=== PATIENT | female | born 1985 | race Caucasian/White ===

== ENCOUNTER → 2019-02-26 | Outpatient (CLI) | payer BC ==
[~2019-02-26] MED LIST: BCP; CEFU500T PO; EPIN0.3P3 IJ; ONDAN4ODT PO; TRM50T PO
--- NOTE | 2019-02-26 11:48 | Diagnostic Imaging Report ---
INDICATION: Anatomy scan. TECHNIQUE: Multiple real-time grayscale images were obtained over the gravid uterus. COMPARISON: None. FINDINGS: There is a single live fetus in a cephalic presentation. heart rate was recorded at 143 beats per minute. Placenta is posterior and to the right. Amniotic fluid volume is normal. Cervical length is 5.0 cm. kidneys, bladder and stomach are unremarkable. There is a three-vessel cord with normal insertion. Spine is unremarkable. There is limited evaluation of brain and four-chamber heart view due to position. Biometrical measurements are as follows: Biparietal 5.24 cm, age 22 weeks 0 days. Head circumference 19.38 cm, age 21 weeks 5 days. Abdominal circumference 16.15 cm, age 21 weeks 2 days. Femur length 3.49 cm, age 21 weeks 1 days. Sonographic estimate age: 21 weeks 4 days. Sonographic estimated date of delivery: 07/05/2019. Estimated Weight: 407 gm (+/- 59 gm). LMP percentile: 33%. heart rate: 143 beats per minute. number: 1 of 1. IMPRESSION: Single live IUP 21 weeks 4 days gestational age. Estimated date of confinement sonographically is 07/05/2019. survey is unremarkable although head and four chamber heart views were limited due to position and followup could be performed. Dictated by: Dictated on workstation # [id number]
== END ==
LOC: RAD 09:50
PROVIDERS: ATTEND Obstetrics & Gynecology
DX: Z36.89 Encounter for other specified antenatal screening (principal); Z3A.21 21 weeks gestation of pregnancy
CPT/HCPCS: 76805

== ENCOUNTER 2019-07-09 06:30 | Inpatient (IN) | payer BC ==
[2019-07-09] VITALS (51 sets, daily range): BP systolic 86–153; BP diastolic 51–84
[~2019-07-09] VITALS: Ht 154.9 cm; Wt 112.0 kg
[2019-07-09] MEDS ORDERED: D5 LR IV SOLUTION 1,000 ML IV ONE (07:43)
[2019-07-09] MEDS ORDERED: OXYTOCIN/NORMAL SALINE 500 ML IV SCH ×2 (08:04→16:16)
[2019-07-09] MEDS ORDERED: D5 LR IV SOLUTION 1,000 ML IV SCH ×2 (08:04)
[2019-07-09] MEDS ORDERED: MINERAL OIL CONCENTRATE 99.9% 15 ML UDC TOP PRN (08:15)
[2019-07-09 08:16] LABS: BASOPHILS % (AUTO) 0 % (0-10); EOSINOPHILS # (AUTO) 0.2 10^3/uL (0.0-0.3); EOSINOPHILS % (AUTO) 1 % (0-10); HEMATOCRIT 39 % (35-52); HEMOGLOBIN 13.6 G/DL (11.5-16.0); LYMPHOCYTES # (AUTO) 2.3 X 10^3 (1.0-4.0); LYMPHOCYTES % (AUTO) 17 % (12-44); MEAN CORPUSCULAR HEMOGLOBIN 29 PG (25-34); MEAN CORPUSCULAR HGB CONC 35 G/DL (32-36); MEAN CORPUSCULAR VOLUME 85 FL (80-99); MEAN PLATELET VOLUME 10.9 FL (7.4-10.4); MONOCYTES % (AUTO) 8 % (0-12); NEUTROPHILS # (AUTO) 9.8 X 10^3 (1.8-7.8); NEUTROPHILS % (AUTO) 74 % (42-75); PLATELET COUNT 213 10^3/uL (130-400); RED CELL DISTRIBUTION WIDTH 14.5 % (10.0-14.5); WHITE BLOOD COUNT 13.4 10^3/uL (4.3-11.0)
--- NOTE | 2019-07-09 08:35 | History & Physical-OB ---
OB - Chief Complaint & HPI Date/Time Date of Admission: Date of Admission: Jul 09, 2019 at 06:30 Date seen by a Provider: Jul 09, 2019 Time Seen by a Provider: 08:20 Chief Complaint/History OB-Reason for Admission/Chief: Induction of Labor Hx : 2 Hx Para: 1 Expected Date of Delivery: Jul 06, 2019 Gestational Age in Weeks: 40 Gestational Age in Days: 3 Indication for induction: post dates Admission Nurse Assessment Rev: Yes History of Labs O pos Antibody neg RI RPR NR HBsAg NR HIV NR GC neg GBS neg Allergies and Home Medications Allergies Coded Allergies: No Known Drug Allergies (Verified , 04/15/09) Home Medications Cefuroxime Axetil 500 Mg Tablet, 500 MG PO BID Prescribed by: STEPHENIE MENON on 05/02/162258 Epinephrine 0.3 Mg/0.3 Ml Auto.injct, 0.3 MG IJ PRN PRN for throat swelling Prescribed by: STEPHENIE MENON on 05/02/162258 [Bcp] , DAILY, (Reported) Patient Home Medication List Home Medication List Reviewed: Yes OB - History Hx of Present Care: Yes Ultrasounds: Normal mid trimester US Obstetrical Complications: None Medical Complications: None Delivery History Hx Blood Disorders: Yes (ANEMIA) Patient Past Medical History BMI > 40 OB - Admission Exam Physical Exam HEENT: NCAT Heart: Rhythm Normal Lungs: Clear Abdomen: Gravid Extremities: Normal Reflexes: Normal Cervical Dilatation: 4cm Effacement: 75% Station: -1 Membranes: Intact Heart Rate: 130's Accelerations: Accelerations Present Decelerations: No Decelerations Short Term Variability: Present Longterm Variability: Average (6-25) Contractions on Admission: 6-10 Minutes Apart Intensity: Mild Morin Scoring Tool (Modified) Dilation (cm): 3-4cm (2) Effacement (%): 51-79% (2) Descent/Station: -1,0 (2) Cervix Consistency: Soft (2) Cervix Position: Anterior (2) Morin Score: 11 Labs Laboratory Tests Test 07/09/19 07:25 Range/Units White Blood Count 13.4 H 4.3-11.0 10^3/uL Red Blood Count 4.63 4.35-5.85 10^6/uL Hemoglobin 13.6 11.5-16.0 G/DL Hematocrit 39 35-52 % Mean Corpuscular Volume 85 80-99 FL Mean Corpuscular Hemoglobin 29 25-34 PG Mean Corpuscular Hemoglobin Concent 35 32-36 G/DL Red Cell Distribution Width 14.5 10.0-14.5 % Platelet Count 213 130-400 10^3/uL Mean Platelet Volume 10.9 H 7.4-10.4 FL Neutrophils (%) (Auto) 74 42-75 % Lymphocytes (%) (Auto) 17 12-44 % Monocytes (%) (Auto) 8 0-12 % Eosinophils (%) (Auto) 1 0-10 % Basophils (%) (Auto) 0 0-10 % Neutrophils # (Auto) 9.8 H 1.8-7.8 X 10^3 Lymphocytes # (Auto) 2.3 1.0-4.0 X 10^3 Monocytes # (Auto) 1.0 0.0-1.0 X 10^3 Eosinophils # (Auto) 0.2 0.0-0.3 10^3/uL Basophils # (Auto) 0.0 0.0-0.1 10^3/uL OB - Assessment/Plan/Diagnosis Assessment Assessment: induction of labor Admission Dx 34 yo @ 40.3 weeks GBS neg Admission Status: Inpatient Order (span 2 midnights) Reason for Inpatient Admission: Induction of labor ARMANI RIGGS DO Jul 09, 2019 08:35
[2019-07-09] MEDS ORDERED: LACTATED RINGERS 1,000 ML IV ONE ×2 (08:39)
[2019-07-09] MEDS ORDERED: SUFENTA 0.6MCG/ML BUPIVA 0.125 100 ML ONE (08:40)
[2019-07-09] MEDS ORDERED: LIDOCAINE PF 2% 5 ML (XYLOCAINE) VIAL ONE (08:40)
[2019-07-09] MEDS ORDERED: fentaNYL INJECTION 100 MCG/2 ML AMP ONE (08:40)
[2019-07-09] MEDS ORDERED: BUPIVACAINE 0.25% 30 ML (SENSORCAINE) VIAL ONE (08:40)
[2019-07-09] MEDS ORDERED: NALOXONE 0.4 MG/ML 1 ML (NARCAN) VIAL IV PRN (08:45)
[2019-07-09] MEDS ORDERED: EPIDURAL (SUFENTA 0.6MCG/ML BUPIVA 0.125%) 100 ML BAG EPI PRN (08:45)
[2019-07-09] MEDS ORDERED: ONDANSETRON 4 MG/2 ML (SDV) Z0FRAN IV PRN (08:45)
[2019-07-09] MEDS: OXYTOCIN/NORMAL SALINE 500 ML IV SCH ×2 (09:50→16:32)
[2019-07-09] MEDS ORDERED: CATHETER FLUSH 10 ML SYR IV SCH ×3 (14:00→22:00)
[2019-07-09] MEDS ORDERED: LIDOCAINE/EPI 2% 1:200,00 (XYLOCAINE) 10 ML VIAL ONE (15:39)
--- NOTE | 2019-07-09 15:55 | NUR ---
spontaneous vaginal delivery by dr tanner mouth and nares cleared by dr tanner with bulb syringe nuchal times 1 reduced prior to delivery of body, terminal meconium . placed to mothers abdomen by dr tanner. infant dried and stimulated by this RN and nursery RN. [address] tanner and cut by dr tanner. 1557 cord bloods collected by dr tanner and med student. sent to lab. 1558 dr tanner and med student assessing perineum for tears/lacerations and bleeding. [address] tanner using 3.0 rapide. 1602 repair completed. 1604 spontaneous vaginal delivery of intact placenta by dr tanner and med student. sent to lab. pitocin on at 999ml/hr per dr damon. [id number] assessing fundal height and bleeding. dr tanner performing fundal massage. 1610 pericare performed by this RN. scant flow noted. assisted out of stirrups. 1612 fundal massage by this RN. moderate flow noted no clots expressed. family remains at bedside for support. 1613 epidural off and removed tip intact. 1614 repositioned to high fowlers, staff assistance x1. denies further need at this time.
--- NOTE | 2019-07-09 16:22 | OB Labor & Delivery Record ---
L&D History Date of Service Date of Service: Jul 09, 2019 History Expected Date of Delivery: Jul 06, 2019 Gestational Age in Weeks: 40 Hx : 2 Hx Para: 1 Complications Events: Routine care Operative Indications (Cesarea: N/A-Vaginal Delivery Intrapartal Events: None L&D Stage1 Stage One Onset of Labor - Date: Jul 09, 2019 Monitors and Tracing Monitor Mode: External Heart Rate: 135 Monitor Accelerations: Uniform Monitor Decelerations: None Station: -1 Correction Variability: Average (6-10) Short Term Variability: Present Presentation: Vertex Vital Signs VS - Last 72 Hours, by Label POS 07/09/19 07/09/19 07/09/19 07/09/19 07:25 08:52 08:56 09:04 Temp 36.7 Pulse 78 64 65 96 Resp 20 20 20 20 B/P (MAP) 128/67 (87) 119/67 (84) 151/75 (100) Pulse Ox 99 99 99 97 O2 Delivery Room Air Room Air Room Air Room Air 07/09/19 07/09/19 07/09/19 07/09/19 09:10 09:13 09:16 09:20 Pulse 69 61 77 96 Resp 20 20 20 20 B/P (MAP) 87/54 (65) 114/62 (79) 124/80 (95) 125/83 (97) Pulse Ox 97 95 95 95 O2 Delivery Room Air Room Air Room Air Room Air 07/09/19 07/09/19 07/09/19 07/09/19 09:25 09:32 09:36 09:41 Pulse 85 61 83 71 Resp 20 18 18 18 B/P (MAP) 125/71 (89) 135/69 (91) 138/84 (102) 111/72 (85) Pulse Ox 97 94 94 94 O2 Delivery Room Air Room Air Room Air Room Air 07/09/19 07/09/19 07/09/19 07/09/19 09:44 09:48 09:52 09:56 Pulse 73 75 73 70 Resp 18 18 18 18 B/P (MAP) 140/64 (89) 122/59 (80) 127/62 (83) 107/53 (71) Pulse Ox 98 97 99 97 O2 Delivery Room Air Room Air Room Air Room Air 10/28/07/09/19 07/09/19 07/09/19 10:03 10:07 10:12 10:15 Pulse 73 72 76 69 Resp 16 16 16 16 B/P (MAP) 126/60 (82) 108/55 (72) 114/59 (77) 120/61 (80) Pulse Ox 99 97 98 98 O2 Delivery Room Air Room Air Room Air Room Air 07/09/19 07/09/19 07/09/19 07/09/19 10:20 10:23 10:30 10:40 Pulse 73 78 76 82 Resp 16 18 18 18 B/P (MAP) 118/58 (78) 121/58 (79) 129/62 (84) 119/57 (77) Pulse Ox 97 96 97 97 O2 Delivery Room Air Room Air Room Air Room Air 07/09/19 07/09/19 07/09/19 07/09/19 11:00 11:15 11:30 11:45 Pulse 72 75 65 69 Resp 18 18 18 18 B/P (MAP) 129/68 (88) 120/62 (81) 123/58 (79) 119/58 (78) Pulse Ox 97 98 99 97 O2 Delivery Room Air Room Air Room Air Room Air 07/09/19 07/09/19 07/09/19 07/09/19 12:00 12:15 12:30 13:00 Pulse 69 72 71 71 Resp 18 18 18 18 B/P (MAP) 118/60 (79) 120/62 (81) 153/78 (103) 115/63 (80) Pulse Ox 97 96 98 98 O2 Delivery Room Air Room Air Room Air Room Air 07/09/19 07/09/19 07/09/19 07/09/19 13:15 13:30 13:45 14:00 Pulse 69 71 71 70 Resp 18 20 20 20 B/P (MAP) 119/65 (83) 126/74 (91) 125/73 (90) 126/69 (88) Pulse Ox 98 98 97 98 O2 Delivery Room Air Room Air Room Air Room Air 07/09/19 07/09/19 07/09/19 14:15 14:30 14:40 Pulse 86 108 71 Resp 20 20 20 B/P (MAP) 134/75 (94) 134/75 (94) 122/66 (84) Pulse Ox 98 99 98 O2 Delivery Room Air Room Air Room Air Rupture of Membranes Spontaneous Ruture of Membrane: No Amniotic Membrane Rupture Time: 0817 Amniotic Membrane Fluid Desc.: Clear Vaginal Bleeding Description: Normal Show Induction/Anesthesia Epidural Cath Placement - Time: 0853 Progress/Notes AROM this AM followed by Pitocin augmentation to max dose of 14 mu. Epidural received and progressed to complete and +2 station L&D Stage2 Stage Two Stage II Date: Jul 09, 2019 Monitors and Tracing Monitor Mode: External Heart Rate: 135 Monitor Accelerations: Uniform Monitor Decelerations: Variable [place] Head Variability: Average (6-10) Short Term Variability: Present Position: Right Occiput Anterior Presentation: Vertex Cord Descript/Complications Cord Vessel Description: 3 Vessels Delivery Type Infant Delivery Method: Spontaneous Vaginal Anterior Shoulder: Right Episiotomy/Perineal Laceration Laceraction(s)/Extensions: Yes Degree (describe repair) Right labial abrasion reapproximated and ligated due to bleeding using 3-0 rapide vicryl suture in usual fashion. Condition of Delivery 1 minute Comment: 8 5 minute Comment: 8 Notes Live male infant weight pending, baby to mothers chest. Condition of Condition of : Living Exam: No Observed Abnormalities Resuscitation Resuscitation: N/A - Spontaneous Resp L&D Stage3 Stage Three Stage III Date: Jul 09, 2019 Pictocin Pitocin Administration mu/min: 14 Pitocin ml/hr: 14 Pitocin Administration Comment: 30 mu wide open at delivery of placenta Placenta Delivery Placenta Delivery: Spontaneous Delivery Summary Summary Estimated blood loss (mL): 350 Attending at delivery: Armani Riggs DO Condition of Delivery Examined: Cervix Examined, Uterus Explored Post Hemorrhage: No Condition of Mother stable Condition of (s) stable ARMANI RIGGS DO Jul 09, 2019 16:22 POS
[2019-07-09] MEDS ORDERED: WITCH HAZEL(TUCKS) 40 EA JAR TOP PRN (16:30)
[2019-07-09] MEDS ORDERED: HYDROcodone/APAP 5 MG/325 MG (LORTAB) TAB PO PRN (16:30)
[2019-07-09] MEDS ORDERED: MEASLES,MUMPS,RUBELLA 1 EA INJ SQ ONE (16:30)
[2019-07-09] MEDS ORDERED: TETANUS,DIPTH,PERTUSS P/F (BOOSTRIX) 0.5 ML VIAL IM ONE (16:30)
[2019-07-09] MEDS ORDERED: BENZOCAINE/MENTHOL (DERMOPLAST) 56 ML CAN TP PRN (16:30)
[2019-07-09] MEDS ORDERED: DIBUCAINE (NUPERCAINAL) 1% OINT 30 GM TOP PRN (16:30)
[2019-07-09] MEDS: IBUPROFEN 600 MG (MOTRIN) TAB PO SCH ×2 (16:33→22:23)
--- NOTE | 2019-07-09 20:10 | NUR ---
pt at this time, denies needs.
[2019-07-09] MEDS: DOCUSATE SODIUM 100 MG (COLACE) CAP PO SCH (20:47)
--- NOTE | 2019-07-09 22:25 | NUR ---
pt sitting up in bed, s.o. at bedside. pt has been up to void on her own without difficulties. No needs noted.
--- NOTE | 2019-07-10 00:30 | NUR ---
pt feeding infant at this time.
--- NOTE | 2019-07-10 02:30 | NUR ---
Pt denies needs at this time.
[2019-07-10 03:50] VITALS: BP 110/60
--- NOTE | 2019-07-10 05:00 | NUR ---
pt sleeping at this time.
[2019-07-10] MEDS: IBUPROFEN 600 MG (MOTRIN) TAB PO SCH ×2 (05:55→12:18)
[2019-07-10 06:52] LABS: BASOPHILS % (AUTO) 0 % (0-10); EOSINOPHILS # (AUTO) 0.2 10^3/uL (0.0-0.3); EOSINOPHILS % (AUTO) 1 % (0-10); HEMATOCRIT 35 % (35-52); HEMOGLOBIN 11.8 G/DL (11.5-16.0); LYMPHOCYTES # (AUTO) 2.5 X 10^3 (1.0-4.0); LYMPHOCYTES % (AUTO) 20 % (12-44); MEAN CORPUSCULAR HEMOGLOBIN 29 PG (25-34); MEAN CORPUSCULAR HGB CONC 34 G/DL (32-36); MEAN CORPUSCULAR VOLUME 87 FL (80-99); MEAN PLATELET VOLUME 10.2 FL (7.4-10.4); MONOCYTES % (AUTO) 8 % (0-12); NEUTROPHILS # (AUTO) 9.3 X 10^3 (1.8-7.8); NEUTROPHILS % (AUTO) 71 % (42-75); PLATELET COUNT 185 10^3/uL (130-400); RED CELL DISTRIBUTION WIDTH 14.4 % (10.0-14.5)
[2019-07-10] MEDS ORDERED: PRENATAL VITAMIN 1 EA TAB PO SCH (07:00)
[2019-07-10] MEDS ORDERED: FLU QUADRIvalent (5+ YOA) 2019-2020 (AFLURIA) 0.5 ML IM ONE (07:15)
--- NOTE | 2019-07-10 07:23 | Anesthesia-Regional Post-Op ---
Regional Patient Condition Mental Status: Alert, Oriented x3 Circulation: Same as Pre-Op Headache: Absent Sensation: Full Recovery Motor Block: Absent Post Op Complications Complications None Follow Up Care/Instructions Patient Instructions None needed. Anesthesia/Patient Condition Patient is doing well, no complaints, stable vital signs, no apparent adverse anesthesia problems. No complications reported per nursing. PA GUO CRNA Jul 10, 2019 07:23 POS
--- NOTE | 2019-07-10 07:24 | Anesthesia-General Post-Op ---
General Patient Condition Mental Status/LOC: Same as Preop Cardiovascular: Satisfactory Nausea/Vomiting: Absent Respiratory: Satisfactory Pain: Controlled Complications: Absent Post Op Complications Complications None Follow Up Care/Instructions Patient Instructions None needed. Anesthesia/Patient Condition Patient Condition Patient is doing well, no complaints, stable vital signs, no apparent adverse anesthesia problems. No complications reported per nursing. PA GUO CRNA Jul 10, 2019 07:24 POS
--- NOTE | 2019-07-10 08:02 | Postpartum Progress Note ---
Note Note Day # 1 Subjective: Patient is without complaints. Ambulating, voiding. Tolerating a regular diet without nausea or vomiting. Normal lochia. Pain is well controlled with oral pain medications. Objective: Physical Exam: General - Alert and oriented, no apparent distress Abdomen - Soft, appropriately tender to palpation, non-distended, fundus firm at umbilicus Extremities - no edema, negative Bhumika's bilaterally Assessment: PPD 1 NVD Plan: Routine care. Encourage breast feeding. Encourage ambulation. Ferrous sulfate supplementation. Plan for discharge today, pending release Vitals - Labs Vital Signs - I&O Vital Signs Date Time Temp Pulse Resp B/P (MAP) Pulse Ox O2 Delivery O2 Flow Rate FiO2 07/10/19 03:50 36.9 74 18 110/60 (77) 97 Room Air 07/09/19 23:47 37.1 76 18 117/62 (80) 97 Room Air 07/09/19 20:45 36.9 76 18 119/68 (85) 98 Room Air 07/09/19 18:22 71 20 86/51 (63) Room Air 07/09/19 18:08 36.8 75 18 121/58 (79) Room Air 07/09/19 17:37 36.7 79 18 122/57 (78) Room Air 07/09/19 17:00 76 20 114/55 (74) Room Air 07/09/19 16:45 81 20 118/57 (77) Room Air 07/09/19 16:30 69 20 136/75 (95) Room Air 07/09/19 15:30 75 20 130/75 (93) 99 Room Air 07/09/19 15:15 69 20 132/77 (95) 98 Room Air 07/09/19 15:00 70 20 128/76 (93) 98 Room Air 07/09/19 14:50 78 20 129/66 (87) 98 Room Air 07/09/19 14:40 71 20 122/66 (84) 98 Room Air 07/09/19 14:30 108 20 134/75 (94) 99 Room Air 07/09/19 14:15 86 20 134/75 (94) 98 Room Air 07/09/19 14:00 70 20 126/69 (88) 98 Room Air 07/09/19 13:45 71 20 125/73 (90) 97 Room Air 07/09/19 13:30 71 20 126/74 (91) 98 Room Air 07/09/19 13:15 69 18 119/65 (83) 98 Room Air 07/09/19 13:00 71 18 115/63 (80) 98 Room Air 07/09/19 12:30 71 18 153/78 (103) 98 Room Air 07/09/19 12:15 72 18 120/62 (81) 96 Room Air 07/09/19 12:00 69 18 118/60 (79) 97 Room Air 07/09/19 11:45 69 18 119/58 (78) 97 Room Air 07/09/19 11:30 65 18 123/58 (79) 99 Room Air 07/09/19 11:15 75 18 120/62 (81) 98 Room Air 07/09/19 11:00 72 18 129/68 (88) 97 Room Air 07/09/19 10:40 82 18 119/57 (77) 97 Room Air 07/09/19 10:30 76 18 129/62 (84) 97 Room Air 07/09/19 10:23 78 18 121/58 (79) 96 Room Air 07/09/19 10:20 73 16 118/58 (78) 97 Room Air 07/09/19 10:15 69 16 120/61 (80) 98 Room Air 07/09/19 10:12 76 16 114/59 (77) 98 Room Air 07/09/19 10:07 72 16 108/55 (72) 97 Room Air 07/09/19 10:03 73 16 126/60 (82) 99 Room Air 07/09/19 09:56 70 18 107/53 (71) 97 Room Air 07/09/19 09:52 73 18 127/62 (83) 99 Room Air 07/09/19 09:48 75 18 122/59 (80) 97 Room Air 07/09/19 09:44 73 18 140/64 (89) 98 Room Air 07/09/19 09:41 71 18 111/72 (85) 94 Room Air 07/09/19 09:36 83 18 138/84 (102) 94 Room Air 07/09/19 09:32 61 18 135/69 (91) 94 Room Air 07/09/19 09:25 85 20 125/71 (89) 97 Room Air 07/09/19 09:20 96 20 125/83 (97) 95 Room Air 07/09/19 09:16 77 20 124/80 (95) 95 Room Air 07/09/19 09:13 61 20 114/62 (79) 95 Room Air 07/09/19 09:10 69 20 87/54 (65) 97 Room Air 07/09/19 09:04 96 20 151/75 (100) 97 Room Air 07/09/19 08:56 65 20 119/67 (84) 99 Room Air 07/09/19 08:52 64 20 128/67 (87) 99 Room Air I & O 07/10/19 07:00 Intake Total 1000 ml Balance 1000 ml Labs Laboratory Tests 07/10/19 06:45: White Blood Count 13.0H, Red Blood Count 4.04L, Hemoglobin 11.8, Hematocrit 35, Mean Corpuscular Volume 87, Mean Corpuscular Hemoglobin 29, Mean Corpuscular Hemoglobin Concent 34, Red Cell Distribution Width 14.4, Platelet Count 185, Mean Platelet Volume 10.2, Neutrophils (%) (Auto) 71, Lymphocytes (%) (Auto) 20, Monocytes (%) (Auto) 8, Eosinophils (%) (Auto) 1, Basophils (%) (Auto) 0, Neutrophils # (Auto) 9.3H, Lymphocytes # (Auto) 2.5, Monocytes # (Auto) 1.0, Eosinophils # (Auto) 0.2, Basophils # (Auto) 0.0 ARMANI RIGGS DO Jul 10, 2019 8:01 am POS
[2019-07-10] MEDS ORDERED: PNV1TABL67 PO (08:03)
[2019-07-10] MEDS ORDERED: DIBU30OI TOP (08:03)
[2019-07-10] MEDS ORDERED: ACHD5005 PO (08:03)
[2019-07-10] MEDS ORDERED: IBUP-844 PO (08:03)
[2019-07-10] MEDS ORDERED: DOCU100C37 PO (08:03)
[2019-07-10] MEDS ORDERED: Benzocaine/Menthol TP (08:03)
--- NOTE | 2019-07-10 08:04 | Discharge Inst-Women's Service ---
Discharge Inst-Women's Serv Depart Medication/Instructions New, Converted or Re-Newed RX: RX on Chart Final Diagnosis PPD 1 NVD Problems Reviewed?: Yes Consults/Follow Up Additional Follow Up: Yes Orders/Referrals Dr. Riggs in 6 weeks Activity Activity: Activity as Tolerated Driving Instructions: No Driving for 1 Week NO SMOKING: NO SMOKING Nothing Inside Vagina: No Douching, No [place], No Tampons Diet Discharge Diet: No Restrictions Symptoms to Report to : Bleeding Excessive, Pain Increased, Fever Over 101 Degrees F, Vaginal Bleeding Increase, Questions/Concerns For Any Problems or Questions: Contact Your Physician ARMANI RIGGS DO Jul 10, 2019 8:04 am POS
--- NOTE | 2019-07-10 08:08 | NUR ---
DR. RIGGS TO PT'S BEDSIDE.
[2019-07-10] MEDS: DOCUSATE SODIUM 100 MG (COLACE) CAP PO SCH (08:16)
[2019-07-10 08:21] VITALS: BP 104/69
--- NOTE | 2019-07-10 08:22 | Anesthesia-Regional Post-Op ---
Regional Patient Condition Mental Status: Alert, Oriented x3 Circulation: Same as Pre-Op Headache: Absent Sensation: Full Recovery Motor Block: Absent Post Op Complications Complications None Follow Up Care/Instructions Patient Instructions None needed. Anesthesia/Patient Condition Patient is doing well, no complaints, stable vital signs, no apparent adverse anesthesia problems. No complications reported per nursing. ROSALINDA PEARSON CRNA Jul 10, 2019 08:22 POS
--- NOTE | 2019-07-10 08:32 | NUR ---
PT SITTING UP IN BED, ATTEMPTING TO BREASTFEED INFANT. S/O AT THE BEDSIDE, HELPING. MEDS GIVEN PO; SEE EMAR FOR FURTHER. VS OBTAINED. INITIAL SHIFT ASSESSMENT COMPLETED; SEE INTERVENTION FOR FURTHER. PT DENIES ANY NEEDS OR QUESTIONS AT THIS TIME. CALL LIGHT WITHIN REACH.
[2019-07-10 12:16] VITALS: BP 104/64
--- NOTE | 2019-07-10 12:24 | NUR ---
DR. RIGGS NOTIFIED OF INFANT BEING TRANSFERRED. ORDERS RECEIVED TO DISCHARGE. WILL BE TO UNIT TO SIGN PRESCRIPTIONS PRIOR TO AFTERNOON CLINIC.
--- NOTE | 2019-07-10 12:39 | NUR ---
DISCHARGE PAPERS PROVIDED AND REVIEWED WITH PT, PT VERBALIZES UNDERSTANDING AND DENIES ANY QUESTIONS AT THIS TIME. PAPER SIGNED. PT VOICES THAT SHE HAS ALREADY RECEIVED THE TDAP AND FLU VACCINES. PT AMBULATES TO NURSERY WITH THIS RN AND S/O TO SEE INFANT PRIOR TO TRANSFER.
--- NOTE | 2019-07-10 13:11 | NUR ---
CLINIC CALLED FOLLOW UP APPOINTMENT SCHEDULED.
--- NOTE | 2019-07-10 14:50 | NUR ---
PT DISCHARGED FROM [facility] TO [facility]ERSON[facility] VIA AMBULATORY IN STABLE CONDITION ACC BY THIS RN AND S/O. BELONGINGS IN HAND.
== END 2019-07-10 14:50 | disposition home or self-care (01) | DRG 807 ==
LOC: LDRP 06:30
PROVIDERS: ADMIT Obstetrics & Gynecology; ATTEND Obstetrics & Gynecology
PROC: 10E0XZZ Delivery of Products of Conception, External Approach (ICD-10-PCS; principal; 2019-07-09)
PROC: 0UQMXZZ Repair Vulva, External Approach (ICD-10-PCS; 2019-07-09)
PROC: 10907ZC Drainage of Amniotic Fluid, Therapeutic from Products of Conception, Via Natural or Artificial Opening (ICD-10-PCS; 2019-07-09)
DX: O48.0 Post-term pregnancy (principal); O71.82 Other specified trauma to perineum and vulva; Z3A.40 40 weeks gestation of pregnancy; Z37.0 Single live birth
CPT/HCPCS: 36415; 85025; 86850; 86900; 86901